=== PATIENT | female | born 1990 | race Caucasian/White ===

== ENCOUNTER 2019-03-24 18:19 | Emergency (ER) | payer BC ==
[2019-03-24] MEDS ORDERED: SODIUM CHLORIDE 0.9% (FLUSH) 10 ML SYG IV PRN (18:26)
[2019-03-24] MEDS ORDERED: SODIUM CHLORIDE 0.9% 1000ML 1,000 ML IVS ONE (18:27)
[2019-03-24] MEDS ORDERED: ONDANSETRON INJ 4 MG/2 ML VIAL IV ONE (18:37)
--- NOTE | 2019-03-24 18:41 | ED.PDOC ---
History of Present Illness - General Time Seen by Provider: 03/24/19 18:26 Information Source: patient - History of Present Illness Initial Comments: 28 yo female with PMH of HTN, anxiety, depression who presents with cc of diarrhea, vomiting, and abdominal pain. Reports has been ill for past 4 days with URI-like sx's - nasal congestion, sore throat, cough, headache, fevers around 101 F. Yesterday began having a couple light episodes of watery diarr hea. This afternoon approx 4 hours ago diarrhea became very frequent and heavy, numerous episodes since onset. Reports also 2 episodes of NBNB emesis in past 2 hours. Also reports new onset upper abdominal pains, intermittent, crampy, 8/10 severity, currently 4/10 severity, located across entire upper abdomen. Also reports subjective fevers and chills all day today. Took peptobismol 1 hour ago with little relief. Denies any dysuria, hematuria. LMP was 1 month ago. No hx of abd surgeries. Review of Systems - Review of Systems Review of Systems: 03/24/19 18:41 as per HPI All other Systems: Reviewed and Negative Family Medical History - Family History Mother Family History: Unknown Physical Exam - Physical Exam General Appearance: Alert, No apparent distress Eyes, Ears, Nose, Throat Exam: PERRL/EOMI, normal ENT inspection, pharynx normal Neck: non-tender, full range of motion, supple, normal inspection Respiratory: chest non-tender, lungs clear, normal breath sounds, no respiratory distress Cardiovascular/Chest: normal peripheral pulses, regular rate, rhythm, no edema, no gallop, no JVD, no murmur Peripheral Pulses: 2+ Gastrointestinal/Abdominal: soft, no organomegaly, abnormal bowel sounds - increased, distended, tenderness - moderate epigastric and RUQ ttp w/o guarding or rebound Back Exam: normal inspection, no CVA tenderness, no vertebral tenderness Extremity: normal range of motion, non-tender, normal inspection Neurologic: no motor/sensory deficits, alert, normal mood/affect, oriented x 3 Skin Exam: normal color, diaphoresis Lymphatic: no adenopathy Progress - Progress Progress: 03/24/19 18:43 Abdominal pain, n/v/d -suspect acute viral GE most likely. Consider also acute cholecystitis vs acute pancreatitis vs gastritis vs flu vs strep vs UTI vs other -obtain labs, UA, flu, strep -place PIV, 1 L NS bolus, Zofran 8 mg IV for nausea 03/24/19 20:12 -Pt states she is feeling markedly improved. Labs reveal WBC 10,900 without left shift or bandemia. Remainder of labwork pretty unremarkable. Flu & strep negative. Suspect acute viral gastroenteritis. -will dc home in good condition with Zofran PRN & work note, return warnings discussed Favian Cheung MD Billing #[id number] Departure - Departure Clinical Impression: Gastroenteritis Time of Disposition: 20:13 Disposition: Discharge to Home or Self Care Condition: Fair Departure Forms: ED Discharge - Work Release Instructions: Viral Gastroenteritis, Adult (DC) Diet: bland diet Activity: increase activity as tolerated
[2019-03-24] MEDS ORDERED: ONDANSETRON ODT (ER DISP) 8 MG TAB PO ONE (20:12)
[2019-03-24 20:23] VITALS: BP 148/94
[2019-03-24 20:34] VITALS: TEMP 97.5; O2SAT 98
== END 2019-03-24 20:25 | disposition home or self-care (01) ==
LOC: ER 18:19
DX: K52.9 Noninfective gastroenteritis and colitis, unspecified (principal)
CPT/HCPCS: 80048; 80076; 81001; 81025; 83690; 85025; 87070; 87502; 87880; J2405; J7030